=== PATIENT | male | born 1980 | race Caucasian/White ===

== ENCOUNTER 2019-03-06 03:05 | Emergency (ER) | payer OTHER ==
[~2019-03-06] VITALS: Ht 182.9 cm; Wt 108.9 kg
[~2019-03-06 03:05] MED LIST: BUSPIRONE HCL10 MG; SERTRALINE HCL50 MG; ZOFRAN ODT4 MG PO
[2019-03-06 03:44] LABS: HEMATOCRIT 45.6 % (42.0-52.0); HEMOGLOBIN 16.1 gm/dL (14.0-18.0); MCH 30.4 pg (26.0-34.0); MCHC 35.3 g/dL (28.0-37.0); MCV 86.3 fL (80.0-100.0); MPV 7.9 fl. (7.2-11.1); RBC 5.29 mil/uL (4.50-6.00); RDW-CV 12.4 % (10.5-14.5); WBC 7.8 thou/uL (4.0-11.0)
[2019-03-06 04:06] LABS: AMP/METHAMP Negative (Negative); COCAINE Negative (Negative); METHADONE Negative (Negative); OPIATES Negative (Negative); PCP Negative (Negative); THC Negative (Negative)
[2019-03-06 04:16] LABS: ALBUMIN 4.8 g/dL (3.4-5.0); CALCIUM 9.1 mg/dL (8.5-10.1); CREATININE 1.1 mg/dL (0.6-1.3); TOTAL BILIRUBIN 0.3 mg/dL (<0.1-1.0); TOTAL PROTEIN 8.5 g/dL (6.4-8.2)
[2019-03-06 04:25] LABS: POTASSIUM 3.4 mmol/L (3.5-5.1)
[2019-03-06 04:31] LABS: BARBITURATES Negative (Negative); BENZODIAZEPINES Negative (Negative)
[2019-03-06] MEDS ORDERED: CARAFATE 1 GM TA1 GM PO (06:31)
[2019-03-06] MEDS ORDERED: PRILOSEC OTC20 MG PO (06:31)
[2019-03-06] MEDS ORDERED: REGLAN 10 MG TA10 MG PO (06:31)
[2019-03-06] MEDS ORDERED: TRAMADOL 50 MG50 MG PO (06:31)
[2019-03-06 06:42] VITALS: BP 141/94
--- NOTE | 2019-03-06 10:18 | EKG ---
[place] [address] ELECTROCARDIOGRAM REPORT Name: TOMMY ROTHMAN Radha Room: [facility]#: [id number] Admission: 03/06/19 Attend Phys: Discharge: 03/06/19 Date of : 78 Report #: [id number] THIS REPORT FOR: //name// [facility] ED Test Date: 2019-03-06 Test Time: 03:25:43 Pat Name: TOMMY ROTHMAN Department: Room: Gender: M Social Services Specialist: : [id number] Requested By: Krista Perez Order Number: [id number] MD: Chente Mcgrath Measurements Intervals [place] Rate: 68 P: -8 VT: 191 QRS: -15 QRSD: 97 T: 31 QT: 405 QTc: 431 Interpretive Statements Sinus rhythm septal q waves Borderline left axis deviation Compared to ECG 04/04/2015 12:20:33 Sinus arrhythmia no longer present Electronically Signed On 03-06-2019 10:18:09 CHEMICAL DEPENDENCY NURSE by Chente Mcgrath [email or web address] <ELECTRONICALLY SIGNED> By: Chente Mcgrath MD, [facility] 03/06/19 1018 0325 0325 Chente Mcgrath MD, FACC /EPI
== END 2019-03-06 06:44 | disposition home or self-care (01) ==
LOC: M.ERS 03:05
PROVIDERS: Emergency Medicine
DX: R10.13 Epigastric pain (principal); R10.12 Left upper quadrant pain; R11.2 Nausea with vomiting, unspecified; Z86.19 Personal history of other infectious and parasitic diseases